=== PATIENT | female | born 2000 ===

== ENCOUNTER → 2021-10-31 18:35 | Observation (INO) | END | disposition home or self-care (01) | LOC: 1NENULAB | PROVIDERS: ADMIT Advanced Practice Midwife; ATTEND Advanced Practice Midwife ==

== ENCOUNTER 2021-11-10 10:29 | Inpatient (IN) ==
[~2021-11-10 10:29] MED LIST: *HR* Nalbuphine 10 MG/ML AMPUL IV PRN; Azithromycin 500 MG in 0.9 % Sodium Chloride 250 ML IVPB PRN; Famotidine 20 MG/2 ML VIAL IVP PRN; Metoclopramide 10 MG/2 ML VIAL IVP PRN; Naloxone 0.4 MG/ML INJ IVP PRN; Ondansetron 4 MG/2 ML VIAL IVP PRN
[2021-11-10] MEDS ORDERED: Ringers Solution, Lactated 1,000 ML IVC SCH (10:30)
[2021-11-10] MEDS ORDERED: Penicillin G Potassium 5,000,000 UNIT in 0.9 % Sodium Chloride Mini Bag 100 ML IVPB ONE (10:30)
[2021-11-10] MEDS ORDERED: Penicillin G Potassium 2,500,000 UNIT/105 ML MLS IVPB SCH (10:30)
[2021-11-10] MEDS ORDERED: EPHEDrine 50 MG/ML VIAL IVP PRN (10:58)
[2021-11-10] MEDS ORDERED: Epidural Premix (fent/bupiv) 110 ML EP SCH (11:00)
[2021-11-10] MEDS ORDERED: Lidocaine -MPF 2% 2 ML VIAL ONE (11:00)
[2021-11-10] MEDS ORDERED: *HR* Phenylephrine 10 MG/ML VIAL ONE (11:42)
[2021-11-10] MEDS ORDERED: Ondansetron 4 MG/2 ML VIAL ONE (11:42)
[2021-11-10 12:14] LABS: Basophils % 0.1 %; Eosinophils % 0.1 %; Hematocrit 34.3 % (35.3-44.9); Immature Granulocytes % 0.4 % (0-4); Lymphocytes # 1.5 K/mcL (0.6-4.6); Lymphocytes % 14.9 %; Mean Corpuscular HGB Conc 32.1 g/dL (31.6-35.5); Mean Corpuscular Volume 84.3 fL (83.0-100.0); Mean Platelet Volume 10.1 fL (9.4-12.4); Monocytes # 0.5 K/mcL (0.0-1.3); Monocytes % 4.7 %; Neutrophils # 7.9 K/mcL (1.6-8.9); Platelet Count 250 K/mcL (140-400); Red Blood Count 4.07 M/mcL (3.82-4.97); Red Cell Distribution Width 12.6 % (11.5-14.5); Segmented Neutrophils % 79.8 %; White Blood Count 9.9 K/mcL (4.3-11.1)
[2021-11-10 12:19] LABS: Amphetamine Screen,Urine Negative ng/mL (Cutoff=1000); Barbiturate Screen,Urine Negative ng/mL (Cutoff=200); Benzodiazepines Screen,Urine Negative ng/mL (Cutoff=200); Cannabinoid Screen,Urine Negative ng/mL (Cutoff = 50); Cocaine Screen,Urine Negative ng/mL (Cutoff= 300); Opiate Screen,Urine Negative ng/mL (Cutoff=300); Phencyclidine Screen,Urine Negative ng/mL (Cutoff=25)
[2021-11-10] MEDS ORDERED: Oxytocin 30 UNIT/503 ML BAG IVC ONE (17:28)
[2021-11-10] MEDS ORDERED: Methylergonovine 0.2 MG/ML AMPUL IM ONE ×2 (18:30→19:18)
[2021-11-10] MEDS ORDERED: Benzocaine/Menthol 56 GM AEROSOL SPRAY TP PRN (18:59)
[2021-11-10] MEDS ORDERED: Rho Immune Globulin 1,500 UNIT SYRINGE IM PRN (18:59)
[2021-11-10] MEDS ORDERED: Lanolin 7 G OINT...G. TP PRN (18:59)
[2021-11-10] MEDS ORDERED: Measles/Mumps/Rubella Vacc 0.5 ML VIAL SQ PRN (18:59)
[2021-11-10] MEDS ORDERED: Oxytocin 30 UNIT/503 ML BAG IVC SCH (18:59)
[2021-11-10] MEDS ORDERED: Ondansetron ODT 4 MG TAB.RAPDIS SL PRN (18:59)
[2021-11-10] MEDS: Acetaminophen 325 MG TABLET PO SCH (19:09)
[2021-11-10] MEDS ORDERED: Ibuprofen 600 MG TABLET PO PRN (19:09)
[2021-11-10] MEDS: Ibuprofen 600 MG TABLET PO SCH (21:40)
[2021-11-11 04:55] LABS: Basophils % 0.1 %; Eosinophils % 0.2 %; Hemoglobin 9.8 g/dL (11.5-15.4); Immature Granulocytes % 0.6 % (0-4); Lymphocytes # 1.5 K/mcL (0.6-4.6); Lymphocytes % 13.3 %; Mean Corpuscular HGB Conc 33.8 g/dL (31.6-35.5); Mean Corpuscular Hemoglobin 27.8 pg (28.0-33.3); Mean Corpuscular Volume 82.4 fL (83.0-100.0); Mean Platelet Volume 10.1 fL (9.4-12.4); Monocytes # 0.7 K/mcL (0.0-1.3); Monocytes % 6.2 %; Neutrophils # 8.7 K/mcL (1.6-8.9); Platelet Count 226 K/mcL (140-400); Red Blood Count 3.52 M/mcL (3.82-4.97); Red Cell Distribution Width 12.3 % (11.5-14.5); Segmented Neutrophils % 79.6 %; White Blood Count 10.9 K/mcL (4.3-11.1)
[2021-11-11 06:13] VITALS: BP 116/74; PULSE 71; TEMP 98.1; O2SAT 100
[2021-11-11] MEDS: Ibuprofen 600 MG TABLET PO SCH ×3 (06:48→18:30)
[2021-11-11] MEDS: Acetaminophen 325 MG TABLET PO SCH ×3 (06:48→18:30)
[2021-11-11] MEDS ORDERED: Prenatal Vit/FA 1 EACH TABLET PO SCH (09:00)
== END 2021-11-11 19:19 | disposition home or self-care (01) | DRG 560 ==
LOC: 1NENULAB → 1NENUOBS 20:27
PROVIDERS: ADMIT Advanced Practice Midwife; ATTEND Advanced Practice Midwife